=== PATIENT | male | born 1955 | race Caucasian/White ===

== ENCOUNTER 2023-02-22 18:59 | Observation (INO) | payer MEDICARE, BC ==
[~2023-02-22] VITALS: Ht 172.7 cm; Wt 104.5 kg
[2023-02-22] MEDS ORDERED: diphenhydrAMINE 50 mg/ml inj ONE (19:06)
[2023-02-22] MEDS ORDERED: diphenhydrAMINE 50 mg/ml inj IV STA (19:06)
--- NOTE | 2023-02-22 19:07 | NUR ---
not readily available, ordered benadryl 50mg IV stat
[2023-02-22] MEDS ORDERED: epiNEPHrine 1 mg/ml inj IM STA ×3 (19:09→19:48)
[2023-02-22] MEDS ORDERED: epiNEPHrine 1 mg/ml inj ONE (19:10)
[2023-02-22] MEDS ORDERED: famotidine/PF 10 mg/ml inj IV ONE (19:15)
[2023-02-22] MEDS ORDERED: methylPREDNISolone sod succ 125mg/2ml vial IV ONE (19:15)
[2023-02-22] MEDS ORDERED: epiNEPHrine inj 5 MG in normal saline 250ml IV soln 245 ML IV SCH (19:30)
[2023-02-22] MEDS ORDERED: albuterol 2.5 MG/3 ML nebule NEB ONE ×2 (19:30→19:40)
[2023-02-22] MEDS ORDERED: glucagon, human recombinant 5 MG in normal saline 100ml IV soln 100 ML IV ONE ×2 (19:30)
[2023-02-22] MEDS ORDERED: normal saline 1000ml 1,000 ML IVB ONE (19:35)
[2023-02-22] MEDS ORDERED: racepinephrine 11.25mg/0.5ml nebule IH ONE (19:40)
[2023-02-22] MEDS ORDERED: racepinephrine 11.25mg/0.5ml nebule ONE (19:41)
[2023-02-22] MEDS ORDERED: glucagon, human recombinant 1mg kit IV ONE (19:45)
[2023-02-22] MEDS ORDERED: ondansetron/PF 4mg/2ml inj IV ONE (20:15)
[2023-02-22] MEDS ORDERED: racepinephrine 11.25mg/0.5ml nebule IH PRN (20:55)
[2023-02-22 21:06] LABS: BASOPHILS % (AUTO) 0.3 % (0-1); EOSINOPHILS # (AUTO) 0.2 X10'3 (0-0.9); EOSINOPHILS % (AUTO) 1.1 % (0-6); HEMATOCRIT 43.2 % (42.0-52.0); HEMOGLOBIN 14.2 g/dl (14.0-17.9); LYMPHOCYTES # (AUTO) 4.8 X10'3 (1.1-4.8); LYMPHOCYTES % (AUTO) 30.8 % (21-51); MEAN CORPUSCULAR HGB CONC 32.8 g/dL (33.0-36.5); MEAN CORPUSCULAR VOLUME 85.2 FL (78-98); MEAN PLATELET VOLUME 7.6 FL (7.4-10.4); MONOCYTES # (AUTO) 0.7 X10'3 (0-0.9); MONOCYTES % (AUTO) 4.8 % (2-12); NEUTROPHILS # (AUTO) 9.8 X10'3 (1.8-7.7); PLATELET COUNT 259 X10'3 (140-440); RED BLOOD COUNT 5.08 X10'6 (4.70-6.10); RED CELL DISTRIBUTION WIDTH 14.9 % (11.5-14.5); WHITE BLOOD COUNT 15.6 X10'3 (4.5-11.0)
[2023-02-22 21:20] LABS: ALANINE AMINOTRANSFERASE 57 U/L (12-78); ALBUMIN 3.4 G/DL (3.4-5.0); ALBUMIN/GLOBULIN RATIO 0.9 (1.1-1.5); ALKALINE PHOSPHATASE 95 IU/L (46-116); ANION GAP 13 (8-16); ASPARTATE AMINO TRANSFERASE 52 U/L (10-37); BILIRUBIN,TOTAL 0.4 MG/DL (0.1-1.0); BLOOD UREA NITROGEN 25 MG/DL (7-18); BUN/CREATININE RATIO 20.2 (10.0-20.0); CALCIUM 7.9 MG/DL (8.5-10.1); CHLORIDE 102 MMOL/L (99-107); CREATININE 1.24 MG/DL (0.60-1.10); GLUCOSE 391 MG/DL (70-104); MAGNESIUM 1.8 MG/DL (1.5-2.4); POTASSIUM 3.3 MMOL/L (3.5-5.1); SODIUM 139 MMOL/L (135-145); TOTAL CARBON DIOXIDE 24.2 MMOL/L (24-32); TOTAL PROTEIN 7.2 G/DL (6.4-8.2); eGFR 58 ML/MIN
--- NOTE | 2023-02-22 21:29 | NUR ---
The POC glucose that was inadvertently done on this pt is not his Lab notified
[2023-02-22] MEDS ORDERED: normal saline 1000ml 1,000 ML IV ONE (22:10)
--- NOTE | 2023-02-23 00:20 | NUR ---
received report from Michelle RN assuming care of pt. Epi gtt dc'd pt remains on o2 at 3 L via nc monitor leads on and functioning. Hospitalist at bedside. Pt endorsed " feeling much better"
[2023-02-23] MEDS ORDERED: dextrose 50%-water 50ml dispensing syringe IV PRN ×2 (00:25)
[2023-02-23] MEDS ORDERED: glucagon, human recombinant 1mg kit SUBCUT PRN (00:25)
[2023-02-23] MEDS ORDERED: ondansetron/PF 4mg/2ml inj IV PRN (00:25)
[2023-02-23] MEDS ORDERED: MESSAGE TO PHARMACY PO ONE (00:25)
[2023-02-23] MEDS ORDERED: diphenhydrAMINE 50 mg/ml inj IV PRN (00:25)
[2023-02-23] MEDS ORDERED: DEXTROSE 15 GM of carb/4 tabs (each vial/BOTTLE has 4 tablets) PO PRN ×2 (00:25)
[2023-02-23] MEDS ORDERED: acetaminophen 325mg tablet PO PRN (00:25)
--- NOTE | 2023-02-23 06:25 | NUR ---
REPORT GIVEN TO WAGNER CHAVEZ ASSUMING CARE OF PT
[2023-02-23] MEDS ORDERED: predniSONE 20 mg tablet PO SCH (08:00)
--- NOTE | 2023-02-23 09:04 | NUR ---
PT DECLINES BREAKFAST TRAY HE IS HAVING SOME DIFFICULTY SWALLOWING RT PREVIOUS COLD
[2023-02-23] MEDS: insulin Lispro (HumaLOG) vial - multi-dose SQ SCH ×3 (09:36→19:38)
--- NOTE | 2023-02-23 09:40 | NUR ---
DR CORDERO PAGED TO CLARIFY PT DC-VS-ADMIT
[2023-02-23] MEDS ORDERED: CARV3.1244 PO (09:47)
[2023-02-23] MEDS ORDERED: ROSU10TA28 PO (09:47)
[2023-02-23] MEDS ORDERED: LISI10TA27 PO (09:47)
[2023-02-23] MEDS ORDERED: ASPI81TA52 PO (09:49)
[2023-02-23] MEDS ORDERED: METO10TA3 PO (09:50)
--- NOTE | 2023-02-23 12:05 | NUR ---
ED BED 16--Pt was told he could go home if he was able to wean off o2, currently 94% on room air. [phone]
[2023-02-23] MEDS ORDERED: lisinopril 10 MG tablet PO SCH (12:10)
[2023-02-23] MEDS ORDERED: aspirin 81mg, enteric-coated 1 TAB TABLET.DR PO SCH (12:10)
[2023-02-23] MEDS: metoclopramide 10mg tablet PO SCH ×2 (12:41→17:00)
[2023-02-23] MEDS ORDERED: CLOP75TA34 PO (12:56)
[2023-02-23] MEDS ORDERED: INSU3INS2 SQ (12:56)
[2023-02-23] MEDS ORDERED: INSU100I45 SQ (12:56)
--- NOTE | 2023-02-23 17:59 | NUR ---
ed 16--pt and family very anxious, would like an update, they have received conflicting information regarding the lactic acid level x [phone]
[2023-02-23] MEDS ORDERED: normal saline 1000ml 1,000 ML IV SCH (19:25)
[2023-02-23 19:49] LABS: BASOPHILS % (AUTO) 0.2 % (0-1); EOSINOPHILS % (AUTO) 0.1 % (0-6); HEMATOCRIT 41.5 % (42.0-52.0); HEMOGLOBIN 13.8 g/dl (14.0-17.9); LYMPHOCYTES # (AUTO) 1.6 X10'3 (1.1-4.8); LYMPHOCYTES % (AUTO) 12.7 % (21-51); MEAN CORPUSCULAR HGB CONC 33.3 g/dL (33.0-36.5); MEAN PLATELET VOLUME 7.4 FL (7.4-10.4); MONOCYTES # (AUTO) 0.7 X10'3 (0-0.9); MONOCYTES % (AUTO) 5.6 % (2-12); NEUTROPHILS # (AUTO) 10.3 X10'3 (1.8-7.7); NEUTROPHILS % (AUTO) 81.4 % (42-75); PLATELET COUNT 252 X10'3 (140-440); RED BLOOD COUNT 4.94 X10'6 (4.70-6.10); RED CELL DISTRIBUTION WIDTH 14.8 % (11.5-14.5); WHITE BLOOD COUNT 12.6 X10'3 (4.5-11.0)
[2023-02-23] MEDS ORDERED: carVEDilol 3.125mg tablet PO SCH (20:00)
[2023-02-23 20:51] VITALS: BP 168/94
[2023-02-23] MEDS ORDERED: ROSUVASTATIN CALCIUM 5 MG TABLET PO SCH (21:00)
[2023-02-23] MEDS ORDERED: piperacillin/tazo 3.375gm/50ml 50 ML IV SCH (22:00)
== END 2023-02-23 20:50 | disposition left against medical advice (07) ==
LOC: ER 19:00 → ED HOLD 02-23 00:31
PROVIDERS: ADMIT Internal Medicine; ATTEND Internal Medicine
DX: T78.02XA Anaphylactic reaction due to shellfish (crustaceans), initial encounter (principal); I25.10 Atherosclerotic heart disease of native coronary artery without angina pectoris; E11.65 Type 2 diabetes mellitus with hyperglycemia; J45.909 Unspecified asthma, uncomplicated; F17.290 Nicotine dependence, other tobacco product, uncomplicated; I25.2 Old myocardial infarction; Z53.29 Procedure and treatment not carried out because of patient's decision for other reasons; Z95.1 Presence of aortocoronary bypass graft; Z91.013 Allergy to seafood; Z95.5 Presence of coronary angioplasty implant and graft; Z79.899 Other long term (current) drug therapy
CPT/HCPCS: 36415; 70360; 70490; 71045; 80053; 82948; 83605; 83735; 84145; 85025; 94640; 96365; 96366; 96372; 96375; 99291; 99292; G0378; J0171; J1200; J1610; J1815; J2405; J2930; J3490; J7030; J7050; J7512; A4615

== ENCOUNTER 2025-05-07 10:14 | Outpatient (CLI) | payer MEDICARE, BC ==
[~2025-05-07 10:14] MED LIST: ASPI81TA52 PO; CARV3.1244 PO; CLOP75TA34 PO; INSU100I61 SQ; INSU3INS2 SQ; LISI10TA27 PO; METO10TA3 PO; ROSU10TA72 PO
--- NOTE | 2025-05-07 11:38 | RADIOLOGY REPORT ---
MRI LUMBAR SPINE WITHOUT CONTRAST: HISTORY: RADICULOPATHY, LUMBAR REGION COMPARISON: None CONTRAST: Study was performed without contrast. TECHNIQUE: Routine, high-resolution, and multiplanar imaging was performed. FINDINGS:Vertebral body alignment: Normal. Marrow signal: No marrow edema or fracture. Conus: Normal in position, signal, and contour. Additional findings: No paraspinal abnormality is observed. 2.2 cm right superior pole renal cyst . T12-L1: The spinal canal and neural foramina are patent. L1-2: The spinal canal and neural foramina are patent. L2-3: The spinal canal and neural foramina are patent. L3-4: The spinal canal and neural foramina are patent. There is mild facet arthrosis with ligamen mary flavum infolding. L4-5: There is moderate facet arthrosis with trace fluid within the right facet joint with ligame nt and flavum infolding. There is a broad based posterior disc bulge. There is mild left greater than right neuroforaminal narrowing. There is mild spinal canal stenosis. L5-S1: There is a left subarticular and foraminal disc extrusion which results in moderate left n euroforaminal narrowing. There is mild hypertrophic degenerative facets. Spinal canal is patent. IMPRESSION: 1. Discogenic and spilled degenerative changes from L4-S1, as described above in detail. 2. Small disc extrusion at L5-S1 resulting in moderate left neuroforaminal narrowing 3. Mild synovitis at the right L4-L5 facet joint with superimposed disc bulge and facet degeneration resulting in mild bilateral neuroforaminal narrowing and mild spinal canal stenosis.
== END 2025-05-07 23:59 | disposition home or self-care (01) ==
LOC: MRI02 10:14
PROVIDERS: ATTEND Nurse Practitioner Family
DX: M51.17 Intervertebral disc disorders with radiculopathy, lumbosacral region (principal); M48.07 Spinal stenosis, lumbosacral region; M47.27 Other spondylosis with radiculopathy, lumbosacral region
CPT/HCPCS: 72148